=== PATIENT | male | born 1965 | race African-American/Black ===

== ENCOUNTER → 2023-12-17 | Outpatient (REF) | payer MEDICARE ==
[~2023-12-17] MED LIST: ALPRAZOLAM1 MG PO; CARVEDILOL PO; CEFUROXIME250 MG PO; CIPRO500 MG PO; DOCUSATE SODIU100 MG PO; FLOMAX0.4 MG PO; HYDROCHLOROTHIA25 MG; HYDROCODON-ACE1 EAC9; JANUMET 50-5001 EACH; LEVEMIR SQ; LOSARTAN POTAS100 MG PO; OMEPRAZOLE40 MG
== END ==
LOC: US 11:04
PROVIDERS: ATTEND Urology
DX: N23 Unspecified renal colic (principal)
CPT/HCPCS: 76700